=== PATIENT | female | born 1955 | race Caucasian/White ===

== ENCOUNTER 2022-06-04 19:46 | Emergency (ER) | payer MEDICARE, MEDICAID ==
[~2022-06-04] VITALS: Ht 167.6 cm; Wt 172.8 kg
[~2022-06-04 19:46] MED LIST: APIX2.5 PO; ARIP5TAB8 PO; MELO7.5T11 PO; SYN.1 PO; VENL150C4 PO; [UNRECOGNIZED DRUG - CODE] PO
[2022-06-04 19:53] VITALS: BP 104/64
--- NOTE | 2022-06-04 19:53 | NUR ---
PT HELD ON [facility] A/W BED
--- NOTE | 2022-06-04 20:03 | NUR ---
DR WALLER WITH PT
--- NOTE | 2022-06-04 20:03 | NUR ---
PT OFFLOADED TO CHAIR A
[2022-06-04] MEDS ORDERED: KETOROLAC 30 MG/ML VIAL IVP ONE (20:40)
--- NOTE | 2022-06-04 20:45 | NUR ---
PER DR. WALLER TORADOL 30MG IVP CAN BE ADMINISTERED IM INSTEAD OF IVP
[2022-06-04] MEDS ORDERED: KETOROLAC 30 MG/ML VIAL IM ONE (20:55)
[2022-06-04 21:40] VITALS: BP 118/79
--- NOTE | 2022-06-04 21:40 | NUR ---
Patient discharged with v/s stable. Written and verbal after care instructions given and explained. Patient verbalized understanding. Ambulatory with steady gait. All questions addressed prior to discharge. Advised to follow up with PMD.
== END 2022-06-04 21:40 | disposition home or self-care (01) ==
LOC: MED 19:46
DX: M25.552 Pain in left hip (principal); I10 Essential (primary) hypertension; E07.9 Disorder of thyroid, unspecified; E66.01 Morbid (severe) obesity due to excess calories; Z68.44 Body mass index [BMI] 60.0-69.9, adult; Z79.899 Other long term (current) drug therapy; Z88.5 Allergy status to narcotic agent; W19.XXXA Unspecified fall, initial encounter; Y93.89 Activity, other specified; Y92.89 Other specified places as the place of occurrence of the external cause; Y99.8 Other external cause status
CPT/HCPCS: 96372; 99283; J1885

== ENCOUNTER 2022-09-28 13:03 | Emergency (ER) | payer MEDICARE, MEDICAID ==
[~2022-09-28] VITALS: Ht 167.6 cm; Wt 172.8 kg
[2022-09-28 13:05] VITALS: BP 108/59
--- NOTE | 2022-09-28 13:10 | NUR ---
PT W/C ASSISTED TO BED 8.
[2022-09-28] MEDS ORDERED: CEPH-588 PO (15:03)
--- NOTE | 2022-09-28 15:10 | NUR ---
Patient discharged with v/s stable. Written and verbal after care instructions given. Patient alert, oriented and verbalized understanding of instructions. Ambulatory with steady gait. All questions addressed prior to discharge. ID band removed. Patient advised to follow up with PMD. Rx of KEFLEX given. Opportunity to ask questions provided and answered.
== END 2022-09-28 15:10 | disposition home or self-care (01) ==
LOC: MED 13:03
DX: L03.115 Cellulitis of right lower limb (principal); M79.89 Other specified soft tissue disorders; I10 Essential (primary) hypertension; E07.9 Disorder of thyroid, unspecified; Z88.5 Allergy status to narcotic agent; Z79.899 Other long term (current) drug therapy; Z86.718 Personal history of other venous thrombosis and embolism
CPT/HCPCS: 93971; 99284; Q0092

== ENCOUNTER 2023-07-02 01:08 | Emergency (ER) | payer MEDICARE, OTHER ==
[~2023-07-02] VITALS: Ht 160 cm; Wt 204.1 kg
[~2023-07-02 01:08] MED LIST changes: +CEPH-588 PO
[2023-07-02 01:12] VITALS: BP 108/50; PULSE 80; RESP 15; TEMP 97.8; O2SAT 98
[2023-07-02] MEDS ORDERED: PROPOFOL 200 MG/20 ML VIAL IV ONE (04:33)
[2023-07-02 06:27] VITALS: TEMP 97.8
[2023-07-02 09:06] VITALS: BP 123/67; PULSE 68; RESP 16; O2SAT 99
== END 2023-07-02 09:14 | disposition short-term general hospital (02) ==
LOC: MED 01:08
DX: M79.602 Pain in left arm (principal); M48.02 Spinal stenosis, cervical region; I12.9 Hypertensive chronic kidney disease with stage 1 through stage 4 chronic kidney disease, or unspecified chronic kidney disease; N18.31 Chronic kidney disease, stage 3a; E66.01 Morbid (severe) obesity due to excess calories; I10 Essential (primary) hypertension; E03.9 Hypothyroidism, unspecified; Z68.45 Body mass index [BMI] 70 or greater, adult; Z88.5 Allergy status to narcotic agent; Z79.899 Other long term (current) drug therapy; Z90.49 Acquired absence of other specified parts of digestive tract; Z98.890 Other specified postprocedural states
CPT/HCPCS: 70450; 72125; 72131; 99285; J2704

== ENCOUNTER 2023-10-14 05:20 | Emergency (ER) | payer MEDICARE, OTHER ==
[~2023-10-14] VITALS: Ht 167.6 cm; Wt 145.1 kg
[~2023-10-14 05:20] MED LIST changes: -APIX2.5 PO; -CEPH-588 PO; -MELO7.5T11 PO; -[UNRECOGNIZED DRUG - CODE] PO
[2023-10-14 05:28] VITALS: BP 118/65; PULSE 102; RESP 18; TEMP 98.7; O2SAT 99
[2023-10-14] MEDS ORDERED: DEXAMETHASONE 10 MG/ML VIAL PO ONE (06:50)
[2023-10-14] MEDS ORDERED: BUPIVACAINE-MPF/EPI 0.25% 30 ML VIAL INJ ONE (06:50)
[2023-10-14] MEDS ORDERED: AMOX-1230 PO ×2 (07:24→11:11)
[2023-10-14] MEDS ORDERED: IBUP-2213 PO ×2 (07:24→11:11)
[2023-10-14 09:36] VITALS: BP 118/65; PULSE 102; RESP 18; TEMP 98.7; O2SAT 99
== END 2023-10-14 09:36 | disposition home or self-care (01) ==
LOC: MED 05:20
DX: K04.7 Periapical abscess without sinus (principal); E03.9 Hypothyroidism, unspecified; I10 Essential (primary) hypertension; Z88.5 Allergy status to narcotic agent; Z79.899 Other long term (current) drug therapy
CPT/HCPCS: 64400; 99284; J1100; J3490; 41800